=== PATIENT | female | born 1945 | race Caucasian/White ===

== ENCOUNTER → 2018-02-09 | Outpatient (CLI) | payer MEDICARE, OTHER ==
--- NOTE | 2018-02-09 12:56 | MR ---
EXAMINATION TYPE: MR cspine/lspine wo con DATE OF EXAM: 02/09/2018 COMPARISON: None HISTORY: Neck pain, Headaches, Left leg radiculopathy, HNP TECHNIQUE: Multiplanar, multisequence imaging of the lumbar and cervical spine is performed without I V contrast. FINDINGS: Cervical spine: There is multilevel spondylosis. Minimal anterolisthesis grade 1 C2-3, retrolisthesis grade 1 C6-7. Loss of disc height and signal is present intervertebral levels especially at C5-6 and C6-7, C4-5. There is endplate discogenic marrow signal change. C2-3: Unremarkable C3-4: Within normal limits C4-5: Posterior extension of endplate disc complex may contact the anterior cervical cord. No signifi cant central stenosis or foraminal encroachment C5-6: Posterior extension of endplate disc complex causes anterior mass effect on the thecal sac. No significant central stenosis. Lateral extension endplate disc complex causes mild right-sided foramin al encroachment. C6-7: Posterior extension of endplate disc complex causes mild anterior mass effect on the thecal sac . No significant foraminal encroachment. C7-T1: Unremarkable. Cervical cord signal is normal. IMPRESSION: Degenerative disc disease and facet arthropathy. Lumbar spine MRI: Lumbar vertebral bodies show preserved height. There is anterolisthesis grade 1 L5-S1, L4-5, L3-4. Lo ss of disc height signal is present intervertebral levels L2-3, L3-4, L4-5 and L5-S1, there is associ ated vacuum disc phenomenon present. Conus medullaris shows an unremarkable appearance. There is a mi ld scoliosis. There may be spondylolysis at L5. L5-S1: Facet arthropathy change with hypertrophic change of the ligamentum flavum encroaches on the l ateral recesses, listhesis is noted, there is no significant central canal stenosis. Listhesis result s in bilateral foraminal encroachment. Broad-based posterior disc bulge causes slight anterior mass e ffect on the thecal sac. Difficult to exclude spondylolysis. L4-5: Listhesis contributes to cause bilateral foraminal encroachment. Posterior broad-based disc bul ge causes minimal anterior mass effect on the thecal sac, only mild central stenosis. Facet arthropat hy with hypertrophy of the ligamentum flavum encroaches on the lateral recesses. L3-4: Posterior extension endplate disc complex along with facet arthropathy with hypertrophic change of the ligamentum flavum results in a trefoil appearance of the thecal sac. There is some right-side d foraminal encroachment due to lateral extension endplate disc complex. L2-3: Posterior broad-based disc bulge causes mild anterior mass effect on the thecal sac. Facet arth ropathy with hypertrophy ligamentum flavum encroaches on the lateral recess. No significant foraminal encroachment. No central stenosis. L1-2: Especially disc bulge causes mild anterior mass effect on the thecal sac. There is facet arthro ruben. No significant central stenosis or foraminal encroachment. Some small cortical cyst associated with the kidneys. IMPRESSION: Degenerative disc disease, possible spondylolysis L5, spondylolisthesis as described crystal hernandez facet arthropathy, spinal curvature, foraminal encroachment.
== END | disposition home or self-care (01) ==
LOC: RADMRIMAIN 11:33
PROVIDERS: ATTEND Family Medicine
DX: M50.321 Other cervical disc degeneration at C4-C5 level (principal); M48.8X2 Other specified spondylopathies, cervical region; M51.36 Other intervertebral disc degeneration, lumbar region; M48.8X6 Other specified spondylopathies, lumbar region; M43.8X6 Other specified deforming dorsopathies, lumbar region
CPT/HCPCS: 72141; 72148

== ENCOUNTER 2019-06-21 21:39 | Observation (INO) | payer MEDICARE, OTHER ==
[2019-06-21 22:42] LABS: Basophils # (A) 0.1 k/uL (0-0.2); Basophils % (A) 2 %; Eosinophils # (A) 0.1 k/uL (0-0.7); Eosinophils % (A) 1 %; HCT 36.2 % (34.0-46.0); Lymphocytes # (A) 0.7 k/uL (1.0-4.8); Lymphocytes % (A) 11 %; MCH 29.5 pg (25.0-35.0); MCHC 33.2 g/dL (31.0-37.0); MCV 88.7 fL (80.0-100.0); Mean Platelet Volume 7.4; Monocytes # (A) 0.4 k/uL (0-1.0); Monocytes % (A) 6 %; Neutrophils # (A) 5.2 k/uL (1.3-7.7); Neutrophils % (A) 79 %; Platelet Count 232 k/uL (150-450); RBC 4.08 m/uL (3.80-5.40); RDW 12.6 % (11.5-15.5); WBC 6.5 k/uL (3.8-10.6)
[2019-06-21 22:57] LABS: INR 0.9 (<1.2); Prothrombin Time 10.2 sec (9.0-12.0)
[2019-06-21 23:02] LABS: African American GFR (CKD) >90 (>60 ml/min/1.73 sqM); Albumin 4.5 g/dL (3.5-5.0); Amylase 42 U/L (30-110); Anion Gap 10 mmol/L; Blood Urea Nitrogen 17 mg/dL (7-17); Calcium 9.4 mg/dL (8.4-10.2); Carbon Dioxide 27 mmol/L (22-30); Chloride 103 mmol/L (98-107); Glucose 153 mg/dL (74-99); Non-African American GFR(CKD) >90 (>60 ml/min/1.73 sqM); Sodium 140 mmol/L (137-145); Total Bilirubin 2.5 mg/dL (0.2-1.3); Total Protein 7.4 g/dL (6.3-8.2)
[2019-06-21 23:05] LABS: ALT 311 U/L (9-52); AST 366 U/L (14-36); Alkaline Phosphatase 123 U/L (38-126); Potassium 3.8 mmol/L (3.5-5.1)
[2019-06-21 23:09] LABS: Partial Thromboplastin Time 21.3 sec (22.0-30.0)
--- NOTE | 2019-06-21 23:10 | ED ---
General Adult HPI - General Chief complaint: Abdominal Pain Stated complaint: Abd and Back Pain Time Seen by Provider: 06/21/19 22:13 Source: patient, RN notes reviewed, old records reviewed Mode of arrival: ambulatory Limitations: no limitations - History of Present Illness Initial comments: 74-year-old female presenting with 1 day history of right upper quadrant pain and right flank pain. Patient states the pain came earlier in the day and then subsided, approximately 2 hours prior to arrival pain worsened prompting evaluation. Patient does report some associated nausea. No fever or chills. She's had previous abdominal surgery for appendectomy. Denies central chest pain. Denies dyspnea. She does state the pain is worse with movement or deep breathing. No diarrhea. No fever. - Related Data Allergies Allergy/AdvReac Type Severity Reaction Status Date / Time Penicillins Allergy Rash/Hives Verified 06/21/19 21:49 Sulfa (Sulfonamide Allergy Rash/Hives Verified 06/21/19 21:49 Antibiotics) codeine AdvReac Abdominal Verified 06/21/19 21:49 Pain Review of Systems ROS Statement: Those systems with pertinent positive or pertinent negative responses have been documented in the HPI. ROS Other: All systems not noted in ROS Statement are negative. Past Medical History Past Medical History: Hypertension Additional Past Medical History / Comment(s): chronic back pain History of Any Multi-Drug Resistant Organisms: None Reported Past Surgical History: Appendectomy, Hysterectomy, Joint Replacement, Orthopedic Surgery, Tonsillectomy Additional Past Surgical History / Comment(s): carpal tunnel, knee replacement, right shoulder and knee Past Psychological History: No Psychological Hx Reported Smoking Status: Never smoker Past Alcohol Use History: None Reported Past Drug Use History: None Reported General Exam Limitations: no limitations General appearance: alert, in no apparent distress Head exam: Present: atraumatic, normocephalic Eye exam: Present: normal appearance, PERRL ENT exam: Present: normal exam Neck exam: Present: normal inspection. Absent: tenderness, meningismus Respiratory exam: Present: normal lung sounds bilaterally. Absent: respiratory distress, wheezes Cardiovascular Exam: Present: regular rate, normal rhythm GI/Abdominal exam: Present: soft, tenderness. Absent: distended, guarding, rebound Extremities exam: Present: normal inspection, normal capillary refill. Absent: pedal edema Back exam: Present: CVA tenderness (R) Neurological exam: Present: alert, oriented X3, CN II-XII intact. Absent: motor sensory deficit Psychiatric exam: Present: normal affect, normal mood Skin exam: Present: warm, dry, intact. Absent: cyanosis, diaphoretic Course Vital Signs 06/21/19 06/21/19 21:43 23:16 Temperature 98.4 F Pulse Rate 85 69 Respiratory 18 18 Rate Blood Pressure 169/75 165/74 O2 Sat by Pulse 98 97 Oximetry EKG Findings - EKG Comments: EKG Findings:: EKG: Sinus rhythm with first-degree AV block, left axis deviation, rate of 74, RI interval 212, QRS duration 88, QTC 444, no ST segment elevation Medical Decision Making - Medical Decision Making 74-year-old female presenting with right upper quadrant pain and nausea. Patient is tender on exam. Ultrasound is performed, shows distended gallbladder with multiple stones. No pericholecystic fluid, no thickening of the g allbladder wall. Common bile duct is at the upper limits of normal at 1 cm. She has mild transaminitis with a AST of 366 and an ALT of 311, normal alkaline phosphatase, mildly elevated bilirubin at 2.5. Patient is otherwise well- appearing with stable vitals, normal white blood cell count. She will be admitted for surgical evaluation. Case is discussed with Dr. Han, he will accept admission. - Lab Data Result diagrams: 06/21/19 22:24 06/21/19 22:24 Lab Results 06/21/19 06/21/19 06/21/19 Range/Units 22:24 22:24 22:24 WBC 6.5 (3.8-10.6) k/uL RBC 4.08 (3.80-5.40) m/uL Hgb 12.0 (11.4-16.0) gm/dL Hct 36.2 (34.0-46.0) % MCV 88.7 (80.0-100.0) fL MCH 29.5 (25.0-35.0) pg MCHC 33.2 (31.0-37.0) g/dL RDW 12.6 (11.5-15.5) % Plt Count 232 (150-450) k/uL Neutrophils % 79 % Lymphocytes % 11 % Monocytes % 6 % Eosinophils % 1 % Basophils % 2 % Neutrophils # 5.2 (1.3-7.7) k/uL Lymphocytes # 0.7 L (1.0-4.8) k/uL Monocytes # 0.4 (0-1.0) k/uL Eosinophils # 0.1 (0-0.7) k/uL Basophils # 0.1 (0-0.2) k/uL PT (9.0-12.0) sec INR (<1.2) APTT (22.0-30.0) sec Sodium 140 (137-145) mmol/L Potassium 3.8 (3.5-5.1) mmol/L Chloride 103 (98-107) mmol/L Carbon Dioxide 27 (22-30) mmol/L Anion Gap 10 mmol/L BUN 17 (7-17) mg/dL Creatinine 0.60 (0.52-1.04) mg/dL Est GFR (CKD-EPI)AfAm >90 (>60 ml/min/1.73 sqM) Est GFR (CKD-EPI)NonAf >90 (>60 ml/min/1.73 sqM) Glucose 153 H (74-99) mg/dL Plasma Lactic Acid Tarik 1.4 (0.7-2.0) mmol/L Calcium 9.4 (8.4-10.2) mg/dL Total Bilirubin 2.5 H (0.2-1.3) mg/dL AST 366 H (14-36) U/L ALT 311 H (9-52) U/L Alkaline Phosphatase 123 (38-126) U/L Troponin I (0.000-0.034) ng/mL Total Protein 7.4 (6.3-8.2) g/dL Albumin 4.5 (3.5-5.0) g/dL Amylase 42 (30-110) U/L Lipase 100 (23-300) U/L 06/21/19 06/21/19 Range/Units 22:24 22:24 WBC (3.8-10.6) k/uL RBC (3.80-5.40) m/uL Hgb (11.4-16.0) gm/dL Hct (34.0-46.0) % MCV (80.0-100.0) fL MCH (25.0-35.0) pg MCHC (31.0-37.0) g/dL RDW (11.5-15.5) % Plt Count (150-450) k/uL Neutrophils % % Lymphocytes % % Monocytes % % Eosinophils % % Basophils % % Neutrophils # (1.3-7.7) k/uL Lymphocytes # (1.0-4.8) k/uL Monocytes # (0-1.0) k/uL Eosinophils # (0-0.7) k/uL Basophils # (0-0.2) k/uL PT 10.2 (9.0-12.0) sec INR 0.9 (<1.2) APTT 21.3 L (22.0-30.0) sec Sodium (137-145) mmol/L Potassium (3.5-5.1) mmol/L Chloride (98-107) mmol/L Carbon Dioxide (22-30) mmol/L Anion Gap mmol/L BUN (7-17) mg/dL Creatinine (0.52-1.04) mg/dL Est GFR (CKD-EPI)AfAm (>60 ml/min/1.73 sqM) Est GFR (CKD-EPI)NonAf (>60 ml/min/1.73 sqM) Glucose (74-99) mg/dL Plasma Lactic Acid Tarik (0.7-2.0) mmol/L Calcium (8.4-10.2) mg/dL Total Bilirubin (0.2-1.3) mg/dL AST (14-36) U/L ALT (9-52) U/L Alkaline Phosphatase (38-126) U/L Troponin I <0.012 (0.000-0.034) ng/mL Total Protein (6.3-8.2) g/dL Albumin (3.5-5.0) g/dL Amylase (30-110) U/L Lipase (23-300) U/L Disposition Clinical Impression: Biliary colic, Cholecystitis Disposition: ADMITTED IP TO THIS HOSP Condition: Stable Is patient prescribed a controlled substance at d/c from ED?: No Referrals: Canelo Uribe MD [Primary Care Provider] - 1-2 days Decision to Admit Reason: Admit from EC Decision Date: 06/22/19 Decision Time: 00:19
--- NOTE | 2019-06-21 23:11 | XR ---
EXAMINATION TYPE: XR chest 2V DATE OF EXAM: 06/21/2019 COMPARISON: NONE HISTORY: Epigastric pain TECHNIQUE: Frontal and lateral views of the chest are obtained. FINDINGS: Heart and mediastinum are normal. Lungs are clear. Diaphragm is normal. Bony thorax appear s normal. IMPRESSION: Normal chest.
--- NOTE | 2019-06-21 23:52 | US ---
EXAMINATION TYPE: US gallbladder DATE OF EXAM: 06/21/2019 COMPARISON: NONE CLINICAL HISTORY: RUQ ab pain. RUQ Pain EXAM MEASUREMENTS: Liver Length: 17.6 cm Gallbladder Wall: 0.2 cm CBD: 1.0 cm Right Kidney: 11.3 x 4.6 x 4.4 cm Pancreas: wnl, tail obscured by overlying bowel gas Liver: Heterogeneous, difficult to penetrate Gallbladder: Mildly distended, multiple mobile gallstones Evidence for sonographic Lomas's sign: No CBD: Upper limits of normal Right Kidney: No evidence of hydro, possible calculus mid/lateral= 7mm IMPRESSION: Numerous gallstones. Large gallbladder. No dilation of the intrahepatic bile ducts. Large common bile duct probably related to gallbladder dysfunction.
[2019-06-22] MEDS ORDERED: ONDANSETRON 4 MG/2 ML VIAL IVP PRN (00:13)
[2019-06-22] MEDS ORDERED: ACETAMINOPHEN TAB 325 MG TAB PO PRN (00:13)
[2019-06-22] MEDS ORDERED: NALOXONE 0.4 MG/ML 1 ML VIAL IV PRN (00:13)
[2019-06-22] MEDS ORDERED: cefTRIAXone IN SWFI 1,000 MG/10 ML SYRINGE IVP STA (00:16)
[2019-06-22] MEDS: SODIUM CHLORIDE 0.9% 1,000 ML IV SCH ×2 (00:29→16:00)
--- NOTE | 2019-06-22 10:42 | P.GSHP ---
History of Present Illness H&P Date: 06/22/19 Chief Complaint: Right upper quadrant pain This a 74-year-old female was admitted through the emergency room with complaints of right quadrant pain. Patient workup found have cholelithiasis. She has evidence of cholelithiasis on her blood work. She states her pain has improved significantly since her admission. She currently is hungry. Past Medical History Past Medical History: Hypertension Additional Past Medical History / Comment(s): chronic back pain History of Any Multi-Drug Resistant Organisms: None Reported Past Surgical History: Appendectomy, Hysterectomy, Joint Replacement, Orthopedic Surgery, Tonsillectomy Additional Past Surgical History / Comment(s): carpal tunnel, knee replacement, right shoulder and knee Past Psychological History: No Psychological Hx Reported Smoking Status: Never smoker Past Alcohol Use History: None Reported Past Drug Use History: None Reported Medications and Allergies Home Medications Medication Instructions Recorded Confirmed Type Hydrochlorothiazide [Hydrodiuril] 25 mg PO DAILY PRN 06/22/19 06/22/19 History Lisinopril 40 mg PO HS 06/22/19 06/22/19 History Meloxicam [Mobic] 7.5 mg PO DAILY PRN 06/22/19 06/22/19 History amLODIPine [Norvasc] 10 mg PO HS 06/22/19 06/22/19 History cloNIDine HCL [Catapres] 0.1 mg PO HS PRN 06/22/19 06/22/19 History Allergies Allergy/AdvReac Type Severity Reaction Status Date / Time Penicillins Allergy Rash/Hives Verified 06/22/19 08:19 Sulfa (Sulfonamide Allergy Rash/Hives Verified 06/22/19 08:19 Antibiotics) codeine AdvReac Abdominal Verified 06/22/19 08:19 Pain Surgical - Exam Vital Signs Temp Pulse Resp BP Pulse Ox 98.4 F 85 18 169/75 98 06/21/19 21:43 06/21/19 21:43 06/21/19 21:43 06/21/19 21:43 06/21/19 21:43 - General well developed, well nourished, no distress - Eyes PERRL - ENT normal pinna, normal nares - Neck no masses - Respiratory normal expansion - Cardiovascular Rhythm: regular - Abdomen Abdomen: soft, non tender Results - Labs 06/21/19 22:24 11/15/19 22:24 Abnormal Lab Results - Last 24 Hours (Table) 06/21/19 06/21/19 06/21/19 Range/Units 22:24 22:24 22:24 Lymphocytes # 0.7 L (1.0-4.8) k/uL APTT 21.3 L (22.0-30.0) sec Glucose 153 H (74-99) mg/dL Total Bilirubin 2.5 H (0.2-1.3) mg/dL AST 366 H (14-36) U/L ALT 311 H (9-52) U/L Diabetes panel 06/21/19 Range/Units 22:24 Sodium 140 (137-145) mmol/L Potassium 3.8 (3.5-5.1) mmol/L Chloride 103 (98-107) mmol/L Carbon Dioxide 27 (22-30) mmol/L BUN 17 (7-17) mg/dL Creatinine 0.60 (0.52-1.04) mg/dL Glucose 153 H (74-99) mg/dL Calcium 9.4 (8.4-10.2) mg/dL AST 366 H (14-36) U/L ALT 311 H (9-52) U/L Alkaline Phosphatase 123 (38-126) U/L Total Protein 7.4 (6.3-8.2) g/dL Albumin 4.5 (3.5-5.0) g/dL Calcium panel 06/21/19 Range/Units 22:24 Calcium 9.4 (8.4-10.2) mg/dL Albumin 4.5 (3.5-5.0) g/dL Pituitary panel 06/21/19 Range/Units 22:24 Sodium 140 (137-145) mmol/L Potassium 3.8 (3.5-5.1) mmol/L Chloride 103 (98-107) mmol/L Carbon Dioxide 27 (22-30) mmol/L BUN 17 (7-17) mg/dL Creatinine 0.60 (0.52-1.04) mg/dL Glucose 153 H (74-99) mg/dL Calcium 9.4 (8.4-10.2) mg/dL Adrenal panel 06/21/19 Range/Units 22:24 Sodium 140 (137-145) mmol/L Potassium 3.8 (3.5-5.1) mmol/L Chloride 103 (98-107) mmol/L Carbon Dioxide 27 (22-30) mmol/L BUN 17 (7-17) mg/dL Creatinine 0.60 (0.52-1.04) mg/dL Glucose 153 H (74-99) mg/dL Calcium 9.4 (8.4-10.2) mg/dL Total Bilirubin 2.5 H (0.2-1.3) mg/dL AST 366 H (14-36) U/L ALT 311 H (9-52) U/L Alkaline Phosphatase 123 (38-126) U/L Total Protein 7.4 (6.3-8.2) g/dL Albumin 4.5 (3.5-5.0) g/dL Assessment and Plan Assessment: Cholelithiasis with possible choledocholithiasis. Patient's CMP will be rechecked. She is tentatively scheduled for laparoscopic cholecystectomy in the a.m. if her LFTs have improved.
[2019-06-22] MEDS ORDERED: cloNIDine HCL 0.1 MG TAB PO PRN (13:22)
[2019-06-22] MEDS ORDERED: HYDROCHLOROTHIAZIDE 25 MG TAB PO PRN (13:22)
--- NOTE | 2019-06-22 14:21 | P.CON ---
Consult Note - . Consult date: 06/22/19 Assessment/Plan:: Covering for Dr. Uribe over the weekend Reason for consult - management of chronic medical conditions History of present illness: Ms. Beebe is a 74 year-old pleasant female with a past medical history of hypertension and chronic low back pain coming into the hospital with a chief complaint of right upper quadrant pain for the past 1 day. Patient states that the pain was on and off initially but eventually the pain was worse with movement and deep breathing so she came into the hospital for further evaluation. Patient was also having nausea but did not throw up. Patient denies having any fevers chills or rigors. In the emergency department patient had an ultrasound of the abdomen showing large gallbladder with numerous gallstones. So the patient was admitted for further management. Patient also had blood work done showing elevated bilirubin and AST and ALT. Dr. Han has evaluated the patient and she is scheduled for an elective cholecystectomy for tomorrow morning. Patient has past medical history of hypertension that is under good control. Patient's medications have been reviewed. She also has chronic low back pain for which she takes meloxicam. On review of systems patient denies having any chest pain or difficulty in breathing, cough. No dysuria or hematuria. No headaches or blurring of vision. No weakness of her extremities. No joint swellings or deformities. REVIEW OF SYSTEMS: PSYCH: No history of anxiety or depression NEURO:No c/o weakness of the extremties, No facial droop, No speech abnormalities. VASCULAR: Peripheral nervous system within the normal limits no edema HEMATOLOGIC: No history of easy bleeding and bruising . No recent infections . RESPIRATORY: No cough, No SOB, No chest discomfort. IMMUNE: No infections INTEGUMENT: no rashes OPHTHALMOLOGIC: No blurry vision and no eye discharge : No dysuria or hematuria [employer]ICE T[employer] ATTENDANT: No bleeding PV CARDIAC: No chest pain , shortness of breath , paroxysmal nocturnal dyspnea MUSCULOSKELETAL : No Aches or pains in the joints or muscles. GI: As per HPI. Denies having any constipation or diarrhea. No blood in the stool. All the review of systems are done and negative except for mentioned above. Past Medical History Past Medical History: Hypertension Additional Past Medical History / Comment(s): chronic back pain History of Any Multi-Drug Resistant Organisms: None Reported Past Surgical History: Appendectomy, Hysterectomy, Joint Replacement, Orthopedic Surgery, Tonsillectomy Additional Past Surgical History / Comment(s): carpal tunnel, knee replacement, right shoulder and knee Past Psychological History: No Psychological Hx Reported Smoking Status: Never smoker Past Alcohol Use History: None Reported Past Drug Use History: None Reported Medications and Allergies Home Medications Medication Instructions Recorded Confirmed Type Hydrochlorothiazide [Hydrodiuril] 25 mg PO DAILY PRN 06/22/19 06/22/19 History Lisinopril 40 mg PO HS 06/22/19 06/22/19 History Meloxicam [Mobic] 7.5 mg PO DAILY PRN 06/22/19 06/22/19 History amLODIPine [Norvasc] 10 mg PO HS 06/22/19 06/22/19 History cloNIDine HCL [Catapres] 0.1 mg PO HS PRN 06/22/19 06/22/19 History Allergies Allergy/AdvReac Type Severity Reaction Status Date / Time Penicillins Allergy Rash/Hives Verified 06/22/19 08:19 Sulfa (Sulfonamide Allergy Rash/Hives Verified 06/22/19 08:19 Antibiotics) codeine AdvReac Abdominal Verified 06/22/19 08:19 Pain Physical Exam Vitals: Vital Signs Temp Pulse Pulse Resp BP BP Pulse Ox 06/22/19 07:00 98.1 F 66 14 166/71 95 06/22/19 03:30 97.8 F 82 18 175/83 94 L 06/22/19 00:33 78 18 189/92 98 06/21/19 23:16 69 18 165/74 97 06/21/19 21:43 98.4 F 85 18 169/75 98 Intake and Output 06/21/19 06/22/19 06/22/19 22:59 06:59 14:59 Intake Total 375 Balance 375 Intake: Intake, IV Titration 375 Amount Sodium Chloride 0.9% 1, 375 000 ml @ 75 mls/hr IV . [id number] [facility] Rx#:[id number] Other: Voiding Method Bedside Commode # Voids 2 Weight 92.533 kg GEN. APPEARANCE: alert, in no apparent distress HEENT : No pallor no icterus. Pupils equal and reactive to light. No JVD. No thyromegaly. RESPIRATORY EXAM: normal lung sounds bilaterally. No wheezes or crackles. CARDIOVASCULAR EXAM: regular rate, normal rhythm, normal heart sounds. GI/ABDOMINAL EXAM: soft, normal bowel sounds. No guarding or rigidity. EXTREMITIES EXAM: No edema. NEUROLOGICAL EXAM: alert, oriented X3, no focal neurological deficits. PSYCHIATRIC EXAM: normal affect, normal mood SKIN EXAM: warm, dry, intact, normal color. Absent: rash Results CBC & Chem 7: 06/21/19 22:24 06/21/19 22:24 Labs: Abnormal Lab Results - Last 24 Hours (Table) 06/21/19 06/21/19 06/21/19 Range/Units 22:24 22:24 22:24 Lymphocytes # 0.7 L (1.0-4.8) k/uL APTT 21.3 L (22.0-30.0) sec Glucose 153 H (74-99) mg/dL Total Bilirubin 2.5 H (0.2-1.3) mg/dL AST 366 H (14-36) U/L ALT 311 H (9-52) U/L ASSESSMENT Biliary colic due to cholelithiasis Hypertension Chronic low back pain PLAN: Patient has been started on IV fluids and pain medications. She seems to be much more comfortable now. Patient's hypertensive medications have been restarted. She is scheduled for cholecystectomy tomorrow morning. Patient to remain nothing by mouth tonight for surgery. Further recommendations to follow depending on the progress of the patient.
[2019-06-22] MEDS: amLODIPine 10 MG TAB PO SCH (21:26)
[2019-06-22] MEDS: LISINOPRIL 20 MG TAB PO SCH (21:26)
[2019-06-23] MEDS: SODIUM CHLORIDE 0.9% 1,000 ML IV SCH ×2 (05:48→16:19)
[2019-06-23 06:47] LABS: ALT 359 U/L (9-52); AST 130 U/L (14-36); African American GFR (CKD) >90 (>60 ml/min/1.73 sqM); Albumin 3.9 g/dL (3.5-5.0); Alkaline Phosphatase 137 U/L (38-126); Anion Gap 7 mmol/L; Blood Urea Nitrogen 8 mg/dL (7-17); Calcium 8.9 mg/dL (8.4-10.2); Carbon Dioxide 27 mmol/L (22-30); Chloride 107 mmol/L (98-107); Glucose 105 mg/dL (74-99); Non-African American GFR(CKD) >90 (>60 ml/min/1.73 sqM); Potassium 3.8 mmol/L (3.5-5.1); Sodium 141 mmol/L (137-145); Total Bilirubin 1.1 mg/dL (0.2-1.3); Total Protein 6.5 g/dL (6.3-8.2)
[2019-06-23 06:48] LABS: Basophils # (A) 0.1 k/uL (0-0.2); Basophils % (A) 1 %; Eosinophils # (A) 0.1 k/uL (0-0.7); Eosinophils % (A) 2 %; HCT 34.2 % (34.0-46.0); HGB 11.4 gm/dL (11.4-16.0); Lymphocytes # (A) 1.2 k/uL (1.0-4.8); Lymphocytes % (A) 23 %; MCH 29.7 pg (25.0-35.0); MCHC 33.2 g/dL (31.0-37.0); MCV 89.4 fL (80.0-100.0); Mean Platelet Volume 7.5; Monocytes # (A) 0.3 k/uL (0-1.0); Monocytes % (A) 6 %; Neutrophils # (A) 3.6 k/uL (1.3-7.7); Neutrophils % (A) 67 %; Platelet Count 227 k/uL (150-450); RBC 3.83 m/uL (3.80-5.40); RDW 12.7 % (11.5-15.5); WBC 5.4 k/uL (3.8-10.6)
[2019-06-23] MEDS ORDERED: MIDAZOLAM 2 MG/2 ML VIAL ONE (08:01)
[2019-06-23] MEDS ORDERED: PROPOFOL 10 MG/ML 20 ML VIAL IV ONE (08:01)
[2019-06-23] MEDS ORDERED: NEOSTIGMINE 1 MG/ML 10 ML VIAL ONE (08:01)
[2019-06-23] MEDS ORDERED: fentaNYL (PF) 50 MCG/ML 2 ML AMP ONE (08:01)
[2019-06-23] MEDS ORDERED: HEPARIN SODIUM,PORCINE 5,000 UNIT/ML 1 ML VIAL ONE (08:01)
[2019-06-23] MEDS ORDERED: ROCURONIUM BROMIDE 10 MG/ML 10 ML VIAL IV ONE (08:01)
[2019-06-23] MEDS ORDERED: GLYCOPYRROLATE 0.2 MG/ML 2 ML VIAL ONE (08:01)
[2019-06-23] MEDS ORDERED: LIDOCAINE 1% INJ 10MG/ML (20 ML MDV) ONE (08:01)
[2019-06-23] MEDS ORDERED: BUPIVACAINE (PF) 0.25% 30 ML VIAL SQ ONE ×2 (08:04→08:24)
[2019-06-23] MEDS ORDERED: LACTATED RINGERS 1,000 ML IV ONE (08:06)
--- NOTE | 2019-06-23 08:54 | P.OP ---
Date of Procedure: 06/23/19 Preoperative Diagnosis: Choledocholithiasis Postoperative Diagnosis: Choledocholithiasis Procedure(s) Performed: Laparoscopic cholecystectomy Anesthesia: LEVON Surgeon: Zander Han Estimated Blood Loss (ml): 5 Pathology: other (Gallbladder) Condition: stable Disposition: PACU Description of Procedure: The patient was placed on the operating table. The patient received a general endotracheal tube anesthesia. The patients abdomen was prepped and draped in the usual sterile fashion. Through an infraumbilical stab incision, the fascia of the anterior abdominal wall was grasped with a pair of Kochers and then the Veress needle was placed in the peritoneal cavity. Position of the Veress needle was confirmed with positive drop test. The abdomen was then insufflated. After adequate insufflation, the 10 mm trocar was placed in the peritoneal cavity. Following this the laparoscope was placed in the peritoneal cavity. The patient was placed in the head-up, right side up position and then a 5 mm trocar was placed in the right lateral and right subcostal position under direct visualization. A 8 mm trocar was placed in the epigastric position. The gallbladder was grasped in the fundus and infundibulum. Traction on the gallbladder was placed in the lateral and the cephalad positions. The triangle of Calot was visualized.. The cystic duct was bluntly dissected until the union of the cystic duct and common bile duct was seen. A critical view of safety was achieved. The cystic duct was then divided and sealed with the Harmonic scissors. A PDS Endoloop was then placed throughout the cystic duct stump. The cystic artery divided and sealed with the Harmonic scissors. The gallbladder was then removed from the liver bed using Harmonic scissors. The gallbladder was then extracted through the epigastric port site. Operative field was checked for any bleeding spots and Harmonic scissors was used to coagulate the liver bed. The abdomen was irrigated. The trocars were removed. The skin was closed using interrupted 3-0 Vicryl suture. Dermabond dressing were applied. The patient tolerated the procedure well.
[2019-06-23] MEDS ORDERED: HYDROmorphone 1 MG/ML 1 ML SYRINGE IVP ONE (09:11)
[2019-06-23] MEDS ORDERED: SODIUM CHLORIDE 0.9% 1,000 ML IV ONE (09:30)
[2019-06-23] MEDS: HYDROmorphone 0.5 MG/0.5 ML SYRINGE IVP PRN ×2 (12:56→20:09)
[2019-06-23] MEDS: amLODIPine 10 MG TAB PO SCH (20:09)
[2019-06-23] MEDS: LISINOPRIL 20 MG TAB PO SCH (20:09)
--- NOTE | 2019-06-23 23:01 | P.PN ---
Subjective Progress Note Date: 06/23/19 Ms. Beebe is a 74 year-old pleasant female with a past medical history of hypertension and chronic low back pain coming into the hospital with a chief complaint of right upper quadrant pain for the past 1 day. Patient states that the pain was on and off initially but eventually the pain was worse with mov ement and deep breathing so she came into the hospital for further evaluation. Patient was also having nausea but did not throw up. Patient denies having any fevers chills or rigors. In the emergency department patient had an ultrasound of the abdomen showing large gallbladder with numerous gallstones. Patient also had blood work done showing elevated bilirubin and AST and ALT. Dr. Guille quintero evaluated the patient and she is scheduled for an elective cholecystectomy . On 06/23/2019 -patient had laparoscopic cholecystectomy done this morning. She is sitting in a chair by the bedside having her dinner. Patient has abdominal soreness. She has been passing gas. She denies having any chest pain or palpitations. No cough or difficulty breathing. No dysuria or hematuria. She has been getting Dilaudid for her pain and it is under good control. Active Medications Acetaminophen (Tylenol Tab) 650 mg PO Q6HR PRN PRN Reason: Mild Pain or Fever > 100.5 Last Admin: 06/22/19 15:59 Dose: 650 mg Documented by: Amlodipine Besylate (Norvasc) 10 mg PO HS [facility] Last Admin: 06/23/19 20:09 Dose: 10 mg Documented by: Clonidine (Catapres) 0.1 mg PO HS PRN PRN Reason: Insomnia Hydrochlorothiazide (Hydrodiuril) 25 mg PO DAILY PRN PRN Reason: SWELLING Hydromorphone HCl (Dilaudid) 0.5 mg IVP Q3HR PRN PRN Reason: Moderate Pain Last Admin: 06/23/19 20:09 Dose: 0.5 mg Documented by: Sodium Chloride (Saline 0.9%) 1,000 mls @ 75 mls/hr IV .[id number] [facility] Last Admin: 06/23/19 16:19 Dose: Not Given Documented by: Lisinopril (Zestril) 40 mg PO HS [facility] Last Admin: 06/23/19 20:09 Dose: 40 mg Documented by: Naloxone HCl (Narcan) 0.2 mg IV Q2M PRN PRN Reason: Opioid Reversal Ondansetron HCl (Zofran) 4 mg IVP Q8HR PRN PRN Reason: Nausea And Vomiting Objective - Vital Signs Vital signs: Vital Signs Temp 98 F 06/23/19 15:00 Pulse 89 06/23/19 15:00 Resp 12 06/23/19 15:57 BP 181/84 06/23/19 15:00 Pulse Ox 93 L 06/23/19 15:00 Intake & Output 06/23/19 06/23/19 06/24/19 06:59 18:59 06:59 Intake Total 1000 Output Total 5 Balance 995 Intake: IV 1000 Output: Estimated Blood Loss 5 Other: Voiding Method Bedside Commode # Voids 2 - Exam GEN. APPEARANCE: alert, in no apparent distress HEENT : No pallor no icterus. Pupils equal and reactive to light. No JVD. No thyromegaly. RESPIRATORY EXAM: normal lung sounds bilaterally. No wheezes or crackles. CARDIOVASCULAR EXAM: regular rate, normal rhythm, normal heart sounds. GI/ABDOMINAL EXAM: soft. Hypoactive BS . Laproscopic scar in the middle line. No bleeding. EXTREMITIES EXAM: No edema. NEUROLOGICAL EXAM: alert, oriented X3, no focal neurological deficits. PSYCHIATRIC EXAM: normal affect, normal mood SKIN EXAM: warm, dry, intact, normal color. Absent: rash - Labs CBC & Chem 7: 06/23/19 05:52 06/23/19 05:52 Labs: Abnormal Lab Results - Last 24 Hours (Table) 06/23/19 Range/Units 05:52 Glucose 105 H (74-99) mg/dL AST 130 H (14-36) U/L ALT 359 H (9-52) U/L Alkaline Phosphatase 137 H (38-126) U/L Assessment and Plan Assessment: ASSESSMENT Biliary colic due to cholelithiasis - Status post laparoscopic cholecystectomy done today Hypertension Chronic low back pain PLAN: Postop patient has been doing good. She is having her dinner. She is getting Dilaudid for her pain. Patient's blood pressure has been, systolic high, probably due to pain. We will continue to monitor. Patient is encouraged to do incentive spirometry and early ambulation. Further recommendations to follow depending on the progress of the patient.
[2019-06-24] MEDS: SODIUM CHLORIDE 0.9% 1,000 ML IV SCH (06:48)
[2019-06-24 08:23] VITALS: BP 132/78; PULSE 91; RESP 18; TEMP 98.3
[2019-06-24 09:56] LABS: ALT 210 U/L (9-52); AST 43 U/L (14-36); African American GFR (CKD) >90 (>60 ml/min/1.73 sqM); Albumin 3.9 g/dL (3.5-5.0); Alkaline Phosphatase 112 U/L (38-126); Anion Gap 10 mmol/L; Blood Urea Nitrogen 9 mg/dL (7-17); Calcium 8.9 mg/dL (8.4-10.2); Carbon Dioxide 26 mmol/L (22-30); Chloride 103 mmol/L (98-107); Glucose 226 mg/dL (74-99); Non-African American GFR(CKD) 87 (>60 ml/min/1.73 sqM); Potassium 3.6 mmol/L (3.5-5.1); Sodium 139 mmol/L (137-145); Total Protein 6.5 g/dL (6.3-8.2)
--- NOTE | 2019-06-24 11:38 | P.DS ---
Providers Date of admission: 06/22/19 00:15 Expected date of discharge: 06/24/19 Attending physician: Zander Han Consults: 06/22/19 10:06 Consult Physician Routine Consulting Provider: Canelo Uribe Consult Reason/Comments: medical mgt Do you want consulting provider notified?: Yes Primary care physician: Canelo Uribe MD Hospital Course: 74-year-old female who presented to the emergency room with abdominal pain. Patient was found to have cholelithiasis with possible choledocholithiasis. She had elevated liver enzymes on admission. She underwent laparoscopic cholecystectomy with Dr. Han 06/23/2019. Patient is doing well postoperatively without any immediate complications. Patient is tolerating diet without nausea or vomiting. Bilirubin now within normal limits at 1.0. LFTs are trending downward. Vital signs have been stable. Pain controlled on oral medications. She is stable for discharge home today. Please see EMR for further hospital course details. Discharge diagnosis 1. Cholelithiasis with choledocholithiasis, status post laparoscopic cholecystectomy Nurse practitioner note has been reviewed by physician. Signing provider agrees with the documented findings, assessment, and plan of care. Patient Condition at Discharge: Stable Plan - Discharge Summary Discharge Rx Participant: Yes New Discharge Prescriptions: New Hydrocodone/Acetaminophen [[place] 5-325] 1 tab PO Q6HR PRN 3 Days #12 tab PRN Reason: Pain No Action cloNIDine HCL [Catapres] 0.1 mg PO HS PRN PRN Reason: Insomnia Hydrochlorothiazide [Hydrodiuril] 25 mg PO DAILY PRN PRN Reason: SWELLING amLODIPine [Norvasc] 10 mg PO HS Meloxicam [Mobic] 7.5 mg PO DAILY PRN PRN Reason: Inflammation Lisinopril 40 mg PO HS Discharge Medication List Hydrochlorothiazide [Hydrodiuril] 25 mg PO DAILY PRN 06/22/19 [History] Lisinopril 40 mg PO HS 06/22/19 [History] Meloxicam [Mobic] 7.5 mg PO DAILY PRN 06/22/19 [History] amLODIPine [Norvasc] 10 mg PO HS 06/22/19 [History] cloNIDine HCL [Catapres] 0.1 mg PO HS PRN 06/22/19 [History] Hydrocodone/Acetaminophen [[place] 5-325] 1 tab PO Q6HR PRN 3 Days #12 tab 06/24/19 [Rx] Follow up Appointment(s)/Referral(s): Canelo Uribe MD [Primary Care Provider] - 1-2 days Zander Han MD [STAFF PHYSICIAN] - 1 Week Activity/Diet/Wound Care/Special Instructions: No driving while taking [place] No lifting over 10 pounds You may shower. No soaking or tub baths Very light activity until you are reevaluated at your follow up appointment with your surgeon
--- NOTE | 2019-06-24 22:57 | P.PN ---
Subjective Progress Note Date: 06/24/19 She is feeling well today, minimal pain and tolerated dinner well. She is feeling ready to go home today. Objective - Vital Signs Vital signs: Vital Signs Temp 98.3 F 06/24/19 07:00 Pulse 91 06/24/19 07:00 Resp 18 06/24/19 07:00 BP 132/78 06/24/19 07:00 Pulse Ox 95 06/24/19 07:00 Intake & Output 06/24/19 06/24/19 06/25/19 06:59 18:59 06:59 Other: # Voids 1 - Exam General: well nourished, well developed, NAD. Vitals reviewed Lungs: normal respiratory effort, no wheezes or rales CV: Regular rate and rhythm, no murmur. Peripheral pulses 2+ Abdomen: soft, nondistended, no organomegaly. Tenderness around incision site Skin: warm and dry. - Labs CBC & Chem 7: 06/23/19 05:52 06/24/19 08:44 Labs: Abnormal Lab Results - Last 24 Hours (Table) 06/24/19 Range/Units 08:44 Glucose 226 H (74-99) mg/dL AST 43 H (14-36) U/L ALT 210 H (9-52) U/L Assessment and Plan (1) Hypertension Status: Acute Code(s): I10 - ESSENTIAL (PRIMARY) HYPERTENSION SNOMED Code(s): 24060057 (2) Biliary colic Status: Acute Code(s): K80.50 - CALCULUS OF BILE DUCT W/O CHOLANGITIS OR CHOLECYST W/O OBST SNOMED Code(s): 75145335 (3) Cholecystitis Status: Acute Code(s): K81.9 - CHOLECYSTITIS, UNSPECIFIED SNOMED Code(s): 11614516 Plan: Medically clear for d/c. Continue her home antihypertensives
== END 2019-06-24 14:03 | disposition home or self-care (01) ==
LOC: EC 21:39 → 4SSUR 06-22 00:15
PROVIDERS: ADMIT Surgery; ATTEND Surgery
DX: K80.64 Calculus of gallbladder and bile duct with chronic cholecystitis without obstruction (principal); I10 Essential (primary) hypertension; G89.29 Other chronic pain; M54.5 Low back pain; M19.90 Unspecified osteoarthritis, unspecified site; Z79.899 Other long term (current) drug therapy; Z79.1 Long term (current) use of non-steroidal anti-inflammatories (NSAID); Z88.0 Allergy status to penicillin; Z88.2 Allergy status to sulfonamides; Z88.5 Allergy status to narcotic agent; Z90.710 Acquired absence of both cervix and uterus; Z96.659 Presence of unspecified artificial knee joint
CPT/HCPCS: 47562; 96361; 96374; 99285; 36415; 93005; 88304; 80053 ×3; 82150; 83605; 83690 ×2; 84484; 85025 ×2; 85610; 85730; 71046; 76705; G0378 ×3; J2250; J1644; J2710; J2001; J0696; J3010; J1170 ×2; J2704

== ENCOUNTER → 2020-04-15 | Outpatient (CLI) | payer MEDICARE, OTHER ==
--- NOTE | 2020-04-15 07:30 | MR ---
EXAMINATION TYPE: MR lumbar spine wo con DATE OF EXAM: 04/15/2020 COMPARISON: MRI lumbar spine February 09, 2018 HISTORY: Spondylosis, spinal stenosis, spondylolysis, intervertebral disc degeneration, scoliosis, an d spondylolisthesis all per order. Severe low back pain for over 20 years going into left leg for pat ient. TECHNIQUE: Multiplanar, multisequence imaging of the lumbar spine is performed without IV contrast. FINDINGS: Sagittal images of the lumbar spine show vertebral body heights to remain satisfactory. Per sistent grade 1 retrolisthesis L2 on L3 and grade 1 anterolisthesis L4 on L5 and L5 and S1. Slight de xtroconvex scoliotic curvature near lumbosacral junction redemonstrated. Persistent multilevel disc d esiccation. Persistent advanced disc space narrowing L3-L4 level. Persistent moderate disc space narr owing L2-L3, L4-L5, and L5-S1 levels. Vacuum disc phenomenon and lower lumbar spine. Fmdc-jh-apbvaqbz multilevel anterior spurring. The conus medullaris remains stable in position ending inferior L1 le denzel. The bone marrow signal intensity remains overall heterogeneous. Axial images show T12-L1 level to remain within normal limits. Axial images at L1-L2 level show mild facet degenerative changes bilaterally and mild broad disc bulg e minimally effacing the anterior thecal sac. No significant change from prior. Axial images at L2-L3 level show spondylolisthesis with moderate broad disc bulge and has left latera l disc protrusion component. There is vlny-dv-ftwurdpy facet degenerative change bilaterally. There i s effacement of the anterior thecal sac. There is mild right and moderate left-sided anterior inferio r neural foraminal narrowing. No significant change from prior. Axial images at L3-L4 level show mild/moderate right greater than left facet degenerative changes eff acing posterior lateral thecal sac. There is moderate broad disc bulge mildly effacing the anterior t hecal sac. There is moderate right-sided neural foraminal narrowing encroaching on right L3 nerve sag ittal image 12 and axial image 14. No significant change from prior. Axial images at the L4-L5 levels with spondylolisthesis with moderate broad-based posterior disc prot rusion effaces the anterior thecal sac. There is moderate to advanced facet degenerative change and l igamentum flavum hypertrophy. There is effacement of the left posterolateral thecal sac. There is mod erate bilateral inferior neural foraminal narrowing. No significant change from prior. Axial images at the L5-S1 level shows spondylolisthesis with moderate to advanced facet degenerative change bilaterally. There is broad-based disc bulge with right paracentral disc protrusion component. There is effacement of the anterior thecal sac. There is yxam-vb-zbtqevdk bilateral neural foraminal narrowing. Occasional T2 hyperintense lesions scattered throughout both kidneys favors thin-walled cyst. New 1.2 cm lesion of less T2 hyperintensity right kidney axial image 27 noted. Follow-up for this lesion is advised to exclude solid lesion though favor proteinaceous cyst. IMPRESSION: Multilevel spondylolisthesis and degenerative changes as detailed above. No significant i nterval progression from prior MRI. Attention to right kidney lesion. Follow-up advised. Renal protoc ol contrast-enhanced CT recommended.
== END | disposition home or self-care (01) ==
LOC: RADMRIMAIN 05:59
PROVIDERS: ATTEND Physical Medicine & Rehabilitation
DX: M43.16 Spondylolisthesis, lumbar region (principal); M47.816 Spondylosis without myelopathy or radiculopathy, lumbar region; Z96.651 Presence of right artificial knee joint
CPT/HCPCS: 72148

== ENCOUNTER → 2020-05-27 | Outpatient (CLI) | payer MEDICARE, OTHER ==
--- NOTE | 2020-05-28 07:25 | CT ---
EXAMINATION TYPE: CT abdomen wo/w con DATE OF EXAM: 05/27/2020 HISTORY: renal cysts CT DLP: 1980.9mGycm Automated Exposure Control for Dose Reduction was Utilized. CONTRAST: CT scan of the abdomen is performed with oral and without and with IV Contrast, patient injected with 100 mL of Isovue 300. COMPARISON: MRI lumbar spine April 15, 2020 and older study February 09, 2018 FINDINGS: LUNG BASES: Partial visualization of right coronary artery calcification and/or stent. LIVER/GB: Gallbladder not seen and presumed surgically absent. Subcentimeter low dense lesion central ly favor thin-walled cyst series 7 image 24. PANCREAS: No significant abnormality is seen. SPLEEN: No significant abnormality is seen. ADRENALS: No significant abnormality is seen. KIDNEYS: Single 2-3 mm nonobstructing renal calculus left kidney lower pole level coronal image 61. N o right-sided nephrolithiasis. Postcontrast images show symmetrical medullary uptake and excretion wi thout hydronephrosis bilaterally. There is thin-walled 1.2 cm cyst left kidney laterally midpole leve l series 12 image 32 corresponding to recent MRI axial image 23. There is 0.8 cm thin-walled cyst med ially upper pole level axial image 27 corresponding to lesion axial image 26 on recent MRI left kidne y. Lesion of concern right kidney is 1.3 cm anteriorly upper pole level axial image 27, noncontrast i mages do not show well-defined lesion as this is isodense, postcontrast images show this area more hy podense to renal cortex with Hounsfield units of 46 and 53. This lesion not clearly seen on 2018 MRI. A subcentimeter T2 hypointense lesion posteriorly near this level corresponds to proteinaceous subce ntimeter focus axial image 29 series 3. BOWEL: Oral contrast does not reach colonic level. No suspicious small or large bowel dilatation. John e diverticula in the visualized distal colon. LYMPH NODES: No greater than 1cm abdominal lymph nodes are appreciated. OSSEOUS STRUCTURES: Underlying levoconvex scoliosis centered at L2-L3 level. Grade 1 retrolisthesis L 1 on L2 and L2 on L3. Grade 1 anterolisthesis L4 on L5 and L5 and S1. Moderate to severe disc space n arrowing with endplate sclerosis and spurring right L3-L4 level and left L4-L5 level.. Severe disc sp jayce narrowing with vacuum disc phenomenon and marked sclerosis L5-S1 level. Multilevel facet arthropa thy lower lumbar spine. OTHER: Moderate calcified plaque of the abdominal aorta with more severe calcified plaque at origin o f bilateral renal arteries. Cannot exclude significant stenosis. IMPRESSION: Atypical new 1.2 cm lesion anteriorly upper pole of the right kidney is confirmed. Not cl assic appearance of solid enhancing renal cell mass or carcinoma is usually demonstrates increased en hancement and some washout relative to remainder of kidney. Lesion not well seen on noncontrast imagi ng. Cannot exclude postcontrast enhancement versus adjacent volume averaging. I thus cannot exclude s olid mass or neoplasm. Consider surgical referral, patient may be ablation candidate. Consider renal protocol contrast-enhanced MRI as subtraction technique can be performed to assess for enhancement.
== END | disposition home or self-care (01) ==
LOC: RADCTMAIN 15:15
PROVIDERS: ATTEND Family Medicine
DX: N28.89 Other specified disorders of kidney and ureter (principal)
CPT/HCPCS: 82565; 84520; 74170; 36415; Q9967

== ENCOUNTER → 2020-06-09 | Outpatient (CLI) | payer MEDICARE, OTHER ==
[2020-06-09 12:55] LABS: MCH 29.6 pg (25.0-35.0); MCHC 31.7 g/dL (31.0-37.0); MCV 93.4 fL (80.0-100.0); Platelet Count 251 k/uL (150-450); RBC 4.06 m/uL (3.80-5.40); RDW 13.1 % (11.5-15.5); WBC 9.1 k/uL (3.8-10.6)
[2020-06-09 22:46] LABS: African American GFR (CKD) 84.2 (60.0-200.0); Albumin 4.4 g/dL (3.80-4.90); Albumin/Globulin Ratio 2.1 (1.60-3.17); Anion Gap 10.7 mmol/L (4.00-12.00); Calcium 9.4 mg/dL (8.7-10.3); Carbon Dioxide 26.3 mmol/L (21.6-31.8); Chol/HDL Ratio 3.8; Globulin 2.1 g/dL (1.6-3.3); LDL Cholesterol,Calculated 116.2 mg/dL (0.0-131.0); Non-African American GFR(CKD) 72.6 (60.0-200.0); Potassium 4.7 mmol/L (3.5-5.5); Total Bilirubin 0.5 mg/dL (0.2-1.2); Total Protein 6.5 g/dL (6.2-8.2); VLDL Calculation 23.8 mg/dL (5.00-40.00)
== END | disposition home or self-care (01) ==
LOC: LABWHC1 10:11
PROVIDERS: ATTEND Family Medicine
DX: I10 Essential (primary) hypertension (principal); N28.1 Cyst of kidney, acquired
CPT/HCPCS: 36415; 80053; 80061; 85027

== ENCOUNTER → 2024-03-18 | Outpatient (CLI) | payer MEDICARE, OTHER ==
--- NOTE | 2024-04-16 09:39 | MR ---
Patient: Mandie Khalil E Ordering Physician: Unknown, Unknown ID: [id number] Phone, Pager: Phone: N/A Pager: N/A : [phone] Age/Gender: 78Y, F Primary Location: N/A Procedure: MR pituitary wo/w con Study Date: 03/18/2024 3:39:06 PM EXAMINATION TYPE: MR pituitary wo/w con DATE OF EXAM: 03/30/2024 7:57 AM CLINICAL INDICATION: Lesion of the pituitary gland COMPARISON: 02/19/2018 TECHNIQUE: Multi planar, multi sequence imaging was performed through the brain. Specialized thin s equences were obtained through the pituitary gland/sella turcica. Pre-and post gadolinium sequences were obtained. IV Contrast: 7.5 cc Gadavist. FINDINGS: The patel-white junctions, ventricular system, and basal cisterns appear unremarkable. The morphology of the pituitary gland is within normal limits. The pituitary stalk is not deviated. After administ ration of gadolinium, homogeneous pituitary enhancement is seen. The intracranial arterial flow voids are intact. IMPRESSION: 1. No pituitary gland abnormality. 2. No evidence of intracranial mass nor acute/subacute CVA.
== END | disposition home or self-care (01) ==
LOC: RADMRIMAIN 16:30
PROVIDERS: ATTEND Family Medicine
DX: E23.7 Disorder of pituitary gland, unspecified (principal)
CPT/HCPCS: 70553; A9585

== ENCOUNTER → 2025-02-25 | Outpatient (CLI) | payer MEDICARE, OTHER ==
[2025-02-25 18:31] LABS: HCT 30.9 % (37.2-46.3); HGB 9.8 g/dL (12.0-15.0); MCH 29.2 pg (27.0-32.0); MCHC 31.7 g/dL (32.0-37.0); MCV 92.0 FL (80.0-97.0); NRBC Per 100 WBC 0 X 10*3/uL (0.00-0.01); Platelet Count 206 X 10*3/uL (140-440); RBC 3.36 X 10*6/uL (4.10-5.20); RDW 11.9 % (11.5-14.5); WBC 7.10 X 10*3/uL (4.50-10.00)
[2025-02-25 18:51] LABS: Anion Gap 11.00 mmol/L (4.00-12.00); BUN/Creat Ratio 29.64 Ratio (12.00-20.00); Blood Urea Nitrogen 32.6 mg/dL (9.0-27.0); Calcium 9.2 mg/dL (8.7-10.3); Carbon Dioxide 26.0 mmol/L (21.6-31.8); Chloride 102 mmol/L (96-109); Glucose 142 mg/dL (70-110); Potassium 4.5 mmol/L (3.5-5.5); Sodium 139 mmol/L (135-145)
== END | disposition home or self-care (01) ==
LOC: LABPAT 13:50
PROVIDERS: ATTEND Internal Medicine Cardiovascular Disease
DX: Z01.812 Encounter for preprocedural laboratory examination (principal); R07.2 Precordial pain; R93.1 Abnormal findings on diagnostic imaging of heart and coronary circulation
CPT/HCPCS: 36415; 80048; 85027